=== PATIENT | female | born 2000 | race Caucasian/White ===

== ENCOUNTER 2023-05-07 00:02 | Emergency (ER) | payer BC, SELFPAY ==
[2023-05-07 00:05] VITALS: BP 134/85; PULSE 110; RESP 16; TEMP 36.7; O2SAT 96; BMI 26.6
--- NOTE | 2023-05-07 00:05 | ED_ITS ---
HPI - SOB/Dyspnea General Time Seen by Provider: 00:05 Date Seen: 05/07/23 Chief Complaint: Shortness of Breath/Dyspnea Stated Complaint: unable to catch her breath, lungs hurt Time Seen by Provider: 05/07/23 00:09 Source: patient, family (Mom on phone), RN notes reviewed and old records reviewed Mode of arrival: ambulatory Limitations: no limitations History of Present Illness HPI Narrative: 23-year-old female who presents today with shortness of breath. Patient had prolonged local practice today, afterward was skipping and had some chest tightness and coughing. This started about an hour prior to coming to the emergency department and has continued since then. Some upper chest tightness although that is getting better. Denies lower extremity swelling, fever, runny nose. Has had a history of some chest tightness and coughing with exercise in the past but usually resolves quickly, also history of environmental allergies. Related Data Home Medications Medication Instructions Recorded Confirmed bupropion HCl 150 mg 24 hr tablet, 150 mg PO QAM 04/02/23 05/07/23 extended release dexmethylphenidate 10 mg tablet 10 mg PO BID 04/02/23 04/02/23 dexmethylphenidate 20 mg 20 mg PO DAILY 04/02/23 05/07/23 capsule,extended release [id number] sertraline 100 mg tablet 100 mg PO DAILY 04/02/23 05/07/23 fluticasone propionate 50 1 spray intranasal DAILY PRN 05/07/23 05/07/23 mcg/actuation nasal spray,suspension (24 Hour Allergy Relief) Allergies Allergy/AdvReac Type Severity Reaction Status Date / Time No Known Drug Allergies Allergy Verified 04/02/23 16:29 Exam Narrative: Exam Narrative: General: Well-developed and well-nourished, no acute distress Head: Atraumatic and normocephalic Eyes: Pupils are equal reactive, extraocular motions intact, conjunctiva clear ENT: External nose and ears are normal, posterior pharynx without erythema or exudate Neck: No midline cervical tenderness, full spontaneous range of motion the neck, trachea midline, no adenopathy Heart: Tachycardic rate and rhythm no murmurs or thrills Lungs: Clear to auscultation bilaterally without wheezes or crackles, frequent nonproductive cough Abdomen: Soft, nontender, nondistended with active bowel sounds Musculoskeletal: No tenderness, deformity, or edema Neurologic: Awake, alert, and oriented x3, no gross focal neurologic deficits, cranial nerves intact as tested Psych: Mood and affect are appropriate Skin: No rashes Const: Vital Signs, click to edit/add: Vital Signs - 24 hr 05/07/23 00:05 Temperature 98.1 F Pulse Rate [Pulse Oximeter] 110 H Respiratory Rate 16 Blood Pressure [Ri ght Upper Arm] 134/85 Pulse Oximetry 96 Oxygen Delivery Me thod Room Air Course Course ED Course: Patient seen and examined, prior records reviewed. Reviewed most recent urgent care visit from March 2023 when patient was seen with sinusitis and treated with doxycycline. Patient presents today with cough, shortness of breath, chest tightness. Started about an hour prior to coming the emergency department. On initial exam here, tachycardic but no hypoxia or respiratory distress. Lungs are clear on exam although with deep inspiration she does have some coughing. Chest x-ray ordered along with D-dimer along with DuoNeb. Reevaluation(s) Time of Reevaluation #1: 00:59 Reevaluation #1: Chest x-ray independently interpreted by me negative for acute findings. Time of Reevaluation #2: 01:19 Reevaluation #2: D-dimer negative independently interpreted by me is negative. Patient feels better after nebulizer treatment. There may be a component of mild bronchospasm here, patient will be given short course of prednisone as well as albuterol. Vital Signs Vital signs: Initial Vital Signs Temperature 98.1 F 05/07/23 00:05 Temperature Source Temporal Artery Scan 05/07/23 00:05 Pulse Rate 110 H 05/07/23 00:05 Respiratory Rate 16 05/07/23 00:05 Blood Pressure 134/85 05/07/23 00:05 Blood Pressure Mean 101 05/07/23 00:05 Blood Pressure Position Sitting 05/07/23 00:05 Pulse Oximetry 96 05/07/23 00:05 Oxygen Delivery Method Room Air 05/07/23 00:05 Vital Signs Temperature 98.1 F 05/07/23 00:05 Pulse Rate 110 H 05/07/23 00:05 Respiratory Rate 16 05/07/23 00:05 Blood Pressure 134/85 05/07/23 00:05 Pulse Oximetry 96 05/07/23 00:05 Oxygen Delivery Method Room Air 05/07/23 00:05 Temperature 98.1 F 05/07/23 00:05 Pulse Rate 110 H 05/07/23 00:05 Respiratory Rate 16 05/07/23 00:05 Blood Pressure 134/85 05/07/23 00:05 Pulse Oximetry 96 05/07/23 00:05 Oxygen Delivery Method Room Air 05/07/23 00:05 Medications Administered Medications: Discontinued Medications Generic Name Dose Route Start Last Admin Trade Name Prabhu PRN Reason Stop Dose Admin Albuterol/Ipratropium 1 neb 05/07/23 00:26 05/07/23 00:51 Iprat-Albut 0.5-2.5 Mg/3 Ml Neb IH 05/07/23 00:27 1 neb ONCE ONE Administration MDM - SOB/Dyspnea Lab Data Labs: Lab Results 05/07/23 05/07/23 Range/Units 00:34 00:40 D-Dimer Quant (PE/DVT) 0.44 (0.00-0.50) ug/ml SARS-CoV-2 (PCR) Negative SARS-CoV-2 (Negative) Influenza Type A (PCR) Negative PCR FLU A (Negative) Influenza Type B (PCR) Negative PCR FLU B (Negative) RSV (PCR) Negative PCR RSV (Negative) Discharge Plan Discharge Clinical Impression: Acute bronchospasm Patient Disposition: Home, Self-Care Condition: Stable Instructions: Bronchospasm (ED) Additional Instructions: Use albuterol as needed Take prednisone as prescribed starting Sunday morning Activity Level: No Restrictions Discharge Diet: Regular Prescriptions: No Action bupropion HCl 150 mg tablet extended release 24 hr 150 mg PO QAM dexmethylphenidate 10 mg tablet 10 mg PO BID dexmethylphenidate 20 mg capsule,ER biphasic 50-50 20 mg PO DAILY sertraline 100 mg tablet 100 mg PO DAILY fluticasone propionate [24 Hour Allergy Relief] 50 mcg/actuation spray,suspension 1 spray intranasal DAILY PRN Rx Instructions: administer into each nostril Follow Up/Referrals: Provider,Not a Local [Primary Care Provider] - Stand Alone [facility]: [facility] Info Instructions
--- NOTE | 2023-05-07 00:26 | CRLHL7_ITS ---
For Patients: As a result of the Century Cures Act, medical imaging exams and procedure reports are released immediately into your electronic medical record. You may view this report before your referring provider. If you have questions, please contact your health care provider. INDICATION: Cough, dyspnea. TECHNIQUE: Chest 2 views. COMPARISON: None. FINDINGS: Cardiovascular and mediastinum: Heart size and vasculature are normal in caliber and appearance. Lungs and pleural spaces: Lungs are clear. No sign of infiltrate or mass. No sign of pleural effusion. No pneumothorax. Bones and soft tissues: No significant findings. IMPRESSION: No acute or significant findings. Dictated by Zackery Francois MD @ 05/07/2023 12:58:11 AM (Electronically Signed)
[2023-05-07] MEDS: IPRAT-ALBUT 0.5-2.5 MG/3 ML NEB 1 NEB IH (00:51)
[2023-05-07 01:07] LABS: D Dimer Quantitative* 0.44 ug/ml (0.00-0.50)
[2023-05-07 01:25] LABS: PCR FLU A Negative PCR FLU A (Negative); PCR FLU B Negative PCR FLU B (Negative); PCR RSV Negative PCR RSV (Negative)
[2023-05-07 01:27] LABS: SARS PCR* Negative SARS-CoV-2 (Negative)
--- NOTE | 2023-05-07 01:49 | PC.NURSE ---
patient DC accompanied by friend, no further questions at tme of DC. ambulatory, RR even and unlabored
== END 2023-05-07 01:50 | disposition home or self-care (01) ==
PROVIDERS: Emergency Provider Family Medicine
DX: J98.01 Acute bronchospasm (principal)
CPT/HCPCS: 36415; 71046; 85379; 87631; 94640; 99283; 99284